=== PATIENT | male | born 1950 | race Caucasian/White ===

== ENCOUNTER → 2016-09-01 | Outpatient (CLI) | payer OTHER ==
[~2016-09-01] VITALS: Ht 167.6 cm; Wt 104.5 kg
[~2016-09-01] MED LIST: ASPI325T PO; CARV6.252 PO; DULA0.5I SQ; FISH1200 PO; FISH120014; FURO1TAB62 PO; INSULIN HUMAN REGULAR 1,000 UNITS/10 ML VIAL SQ PRN; LACTATED RINGER'S 1000 ML IV SCH; LOSA50TA PO; METOPROLOL TARTRATE 25 MG TAB PO PRN; POTA-163 PO; PRAV80TA2 PO; PROPOFOL 200 MG/20 ML AMP IV ONE; PROT40TA PO; SODIUM CHLORID 0.9% 500 ML IV SCH; TRAZ150T75 PO
[2016-09-01 09:47] VITALS: BP 117/65; PULSE 69; RESP 18; TEMP 97.8; O2SAT 97
--- NOTE | 2016-09-01 11:18 | PD.PROCEDR ---
GI Procedure PROCEDURE PERFORMED Flexible sigmoidoscopy with fecal disimpaction INDICATION FOR PROCEDURE Fecal impaction PROCEDURE: The procedure, risks and benefits were discussed with Mr. Castillo and informed consent was obtained. Anesthesia sedated him with Diprivan. He was placed in the left lateral decubitus position. Flexible Sigmoidoscopy: The Pentax videoscope was introduced through the rectum and advanced to the sigmoid. Retroflexion was performed in the rectum. Colonic prep was good FINDINGS: Scope advanced to about 25 cm to 30 cm there was a large rockhard fecal material this was extracted in full sigmoid mucosa was otherwise unremarkable ESTIMATED BLOOD LOSS: None SPECIMENS REMOVED: None COMPLICATIONS: None IMPRESSION: Fecal impaction PLAN: Patient to do enemas periodically Follow-up as needed Jh Obrien MD Sep 01, 2016 11:17
[2016-09-01 11:24] VITALS: BP 105/56; PULSE 63; RESP 16; O2SAT 98
--- NOTE | 2016-09-01 14:03 | EKG ---
Date Performed: 09/01/2016 Time Performed: 09:58:36 PTAGE: 66 years EKG: Sinus rhythm LEFT ANTERIOR FASCICULAR BLOCK ABNORMAL ECG Since PREVIOUS TRACING , no significant change noted PREVIOUS TRACIN05/03/2015 10.49 DOCTOR: Greyson Jacques Interpretating Date/Time 09/01/2016 13:58:43
== END ==
LOC: HEND 09:14
PROVIDERS: ATTEND Internal Medicine Gastroenterology
DX: K56.41 Fecal impaction (principal); K59.00 Constipation, unspecified; I10 Essential (primary) hypertension
CPT/HCPCS: 00810; 45330; 93005; J7120